=== PATIENT | female | born 1990 | race American Indian/Alaskan Native ===

== ENCOUNTER 2017-04-09 20:00 | Emergency (ER) | payer BC ==
[2017-04-09 20:06] VITALS: RESP 18; TEMP 98.7
[2017-04-09] MEDS ORDERED: Sodium Chloride 0.9% 1,000 ML IV STA (20:21)
[2017-04-09 20:23] VITALS: O2SAT 99
--- NOTE | 2017-04-09 20:23 | ED PDOC ---
"Arrival/HPI - General Chief Complaint: Chest Pain Time Seen by Provider: 04/09/17 20:07 Historian: Patient - History of Present Illness Narrative History of Present Illness (Text): 04/09/17 20:21 26 y/o female no pmh, nkda, c/o bilateral lower extremity pain and chest pain x 2 days. Pt. stated that she has bilateral lower extremity pain, noticed to have rt. calf pain with the chest pain for the past 2 days, no night sweat, no dizziness, no change in vision, no pain medication taken at home, was seen at the [facility] and send to the ER for further evaluation, no palpitation, no rash, no other medical or psychological complaints. Past Medical History - Provider Review Nursing Documentation Reviewed: Yes - Hematological/Oncological Hx Blood Disorders: Yes Hx Anemia: Yes - Psychiatric Hx Substance Use: No - Anesthesia Hx Anesthesia: No Family/Social History - Physician Review Nursing Documentation Reviewed: Yes Family/Social History: Unknown Family HX Smoking Status: Light Smoker < 10 Cigarettes Daily Hx Alcohol Use: No Hx Substance Use: No Allergies/Home Meds Allergies/Adverse Reactions: Allergies No Known Allergies Allergy (Verified 04/09/17 20:21) Review of Systems - Review of Systems Constitutional: absent: Fatigue, Fevers Eyes: absent: Vision Changes ENT: absent: Hearing Changes Respiratory: absent: SOB, Cough Cardiovascular: Chest Pain Gastrointestinal: absent: Abdominal Pain, Nausea, Vomiting Musculoskeletal: Myalgias. absent: Arthralgias, Back Pain, Neck Pain, Joint Swelling Skin: absent: Rash, Pruritis Neurological: absent: Headache, Dizziness Psychiatric: absent: Anxiety, Depression, Suicidal Ideation Physical Exam Vital Signs Reviewed: Yes Vital Signs Temp Pulse Resp BP Pulse Ox 04/10/17 01:07 75 18 107/50 L 99 04/09/17 20:23 18 135/89 99 04/09/17 20:04 98.7 F 104 H 18 139/94 H 100 Temperature: Afebrile Blood Pressure: Hypertensive Pulse: Tachycardic Respiratory Rate: Normal Appearance: Positive for: Well-Appearing, Non-Toxic, Comfortable Pain Distress: None Mental Status: Positive for: Alert and Oriented X 3 - Systems Exam Head: Present: Atraumatic, Normocephalic Pupils: Present: PERRL Extroacular Muscles: Present: EOMI Conjunctiva: Present: Normal Mouth: Present: Moist Mucous Membranes Neck: Present: Normal Range of Motion Respiratory/Chest: Present: Clear to Auscultation, Good Air Exchange. No: Respiratory Distress, Accessory Muscle Use Cardiovascular: Present: Regular Rate and Rhythm, Normal S1, S2. No: Murmurs Abdomen: Present: Normal Bowel Sounds. No: Tenderness, Distention, Peritoneal Signs Back: Present: Normal Inspection Upper Extremity: Present: Normal Inspection. No: Cyanosis, Edema Lower Extremity: Present: Normal Inspection, Other (Bilateral lower extremity: mild bruising approx. 4cm diameter noted on the rt. tibial region, no cellulitis , no streaking or ulcers, FROM without limitations, sensation intact, motor 5/5 , +DPPT pulses, capillary refill< 2 seconds, neurovascular intact. ). No: Edema Neurological: Present: GCS=15, Speech Normal, Motor Func Grossly Intact, Gait Normal, Memory Normal Skin: Present: Warm, Dry, Normal Color. No: Rashes Psychiatric: Present: Alert, Oriented x 3, Normal Insight, Normal Concentration Medical Decision Making ED Course and Treatment: 04/09/17 20:27 -labs/ua/rapid flu -bilateral lower extremities venuous doppler -IVF -Observe and reassess 04/10/17 01:52 -EKG: NSR @ 84 BPM, no ST elevation or depression, no T wave inversion. -Bilateral lower extremities venuous doppler: as per preliminary report, no acute DVT -CTA: No evidence of pulmonary embolism or other significant acute abnormality in the chest. -Labs are non-significant except d-dimer 294 -Pt. is asymptomatic now, no cardiopulmonary complaints. -Macrobid ordered. -Discharge home with macrobid, tylenol, bed rest, follow up with your own pmd and electrical equipment technician within 2 days, return to the ER for any new or worsening signs or symptoms. - Lab Interpretations Lab Results: 04/09/17 21:29 04/09/17 21:29 Lab Results 04/09/17 21:29: WBC 8.8, RBC 4.44, Hgb 13.9, Hct 39.1, MCV 88.1, MCH 31.3, MCHC 35.5, RDW 12.2, Plt Count 242, MPV 11.8 H, Gran % 66.6, Lymph % (Auto) 24.7, [place] % (Auto) 6.3 H, Eos % (Auto) 1.9, Baso % (Auto) 0.5, Gran # 5.88, Lymph # 2.2, [place] # 0.6, Eos # 0.2, Baso # 0.04 04/09/17 21:29: Sodium 140, Potassium 4.0, Chloride 103, Carbon Dioxide 27, Anion Gap 14, BUN 16, Creatinine 0.8, Est GFR ( Amer) > 60, Est GFR (Non- Af Amer) > 60, Random Glucose 80, Calcium 9.3, Magnesium 1.8, Total Bilirubin 0.6, AST 31, ALT 44, Alkaline Phosphatase 77, Lactate Dehydrogenase 557, Total Creatine Kinase 161, Troponin I < 0.01, NT-Pro-B Natriuret Pep 32.8, Total Protein 7.9, Albumin 4.4, Globulin 3.5, Albumin/Globulin Ratio 1.2, Lipase 132 04/09/17 21:29: Urine Color Yellow, Urine Appearance Clear, Urine pH 6.0, Ur Specific [place] 1.015, Urine Protein Negative, Urine Glucose (UA) Negative, Urine Ketones Negative, Urine Blood Trace-intact H, Urine Nitrate Positive H, Urine Bilirubin Negative, Urine Urobilinogen 0.2, Ur Leukocyte Esterase Negative , Urine RBC 0 - 2, Urine WBC 2 - 5, Ur Epithelial Cells 1 - 3, Urine Bacteria Large 04/09/17 21:29: D-Dimer, Quantitative 294 H 04/09/17 20:21: Influenza Typ A,B (EIA) Negative for flu a/b I have reviewed the lab results: Yes - RAD Interpretation Radiology Orders: 04/09/17 20:23 DUPLEX LOWER EXTRM VEIN BILAT [US] Stat 04/09/17 22:09 ANGIO CHEST PE PROTOCOL [CT] Stat -Bilateral lower extremities venuous doppler: as per preliminary report, no acute DVT ----- -Chest xray: FINDINGS: PULMONARY ARTERIES: Contrast opacification of the pulmonary arteries is adequate , and there are no filling defects seen to suggest pulmonary embolism. AORTA: No evidence of aortic dissection. LUNGS: No evidence of significant focal consolidation/infiltrate in the lungs. No evidence of diffuse pulmonary vascular congestion. PLEURAL SPACE: No pneumothorax or pleural effusions seen. HEART: No evidence of significant pericardial effusion. BONES/JOINTS: No acute bony abnormality identified. SOFT TISSUES: No acute abnormality of the visualized soft tissues seen. LYMPH NODES: No evidence of diffuse lymphadenopathy. ARAMIS ABRAMS | Final Radiology Report CONFIDENTIALITY STATEMENT This report is intended only for use by the referring physician, and only in accordance with law. If you received this in error, call [phone]. Page 2 of 2 IMPRESSION: - No evidence of pulmonary embolism or other significant acute abnormality in the chest. - See above for remaining findings. Thank you for allowing us to participate in the care of your patient. Dictated and Authenticated by: Edyta Mcdonough MD 04/10/2017 1:35 AM Eastern Time ([place] & [place]) Sliver Machine Operator: Radiologist - EKG Interpretation EKG Interpretation (Text): 04/09/17 20:28 -EKG: NSR @ 84 BPM, no ST elevation or depression, no T wave inversion. Interpreted by ED Physician: Yes Type: 12 lead EKG - Medication Orders Current Medication Orders: Discontinued Medications Sodium Chloride (Sodium Chloride 0.9%) 1,000 mls @ 999 mls/hr IV .Q1H1M STA Stop: 04/09/17 21:21 Last Admin: 04/09/17 21:56 Dose: 999 mls/hr eMAR Start Stop Document 04/09/17 21:56 SHAGUFTA (Rec: 04/09/17 21:57 SHAGUFTA [facility] [id number][place] Intravenous Solution Start Date 04/09/17 Start Time 21:56 End Date 04/09/17 End time 22:56 Total Infusion Time 60 - PA / DIRECTOR SPECIAL EDUCATION / Resident Statement MD/DO has reviewed & agrees with the documentation as recorded. Disposition/Present on Arrival - Present on Arrival Any Indicators Present on Arrival: No History of DVT/PE: No History of Uncontrolled Diabetes: No Urinary Catheter: No History of Decub. Ulcer: No History Surgical Site Infection Following: None - Disposition Have Diagnosis and Disposition been Completed?: Yes Diagnosis: UTI (urinary tract infection), Atypical chest pain Disposition: HOME/ ROUTINE Disposition Time: 01:53 Patient Plan: Discharge Condition: IMPROVED Discharge Instructions (ExitCare): Chest Pain (ED) Additional Instructions: -Discharge home with macrobid, tylenol, bed rest, follow up with your own pmd and electrical equipment technician within 2 days, return to the ER for any new or worsening signs or symptoms. Prescriptions: Acetaminophen [Tylenol 325mg tab] 2 tab PO QID PRN #30 tab PRN Reason: Other Nitrofurantoin Macrocrystals [Macrobid] 100 mg PO BID #14 cap Referrals: Pranav Zeng MD [Staff Provider] - Follow up with primary [facility] [place]] - Follow up with primary Forms: WORK NOTE"
[2017-04-09 21:50] LABS: BASO # 0.04 K/mm3 (0.0-2.0); BASO % 0.5 % (0.0-3.0); EOS # 0.2 (0.0-0.7); EOS % 1.9 % (1.5-5.0); GRAN # 5.88 (1.4-6.5); GRAN % 66.6 % (50.0-68.0); HEMOGLOBIN 13.9 g/dL (12.0-16.0); LYMPH # 2.2 (1.2-3.4); LYMPH % 24.7 % (22.0-35.0); MEAN CELL VOLUME 88.1 fl (80.0-105.0); MEAN CORPUSCULAR HEMOGLOBIN 31.3 pg (25.0-35.0); MEAN CORPUSCULAR HGB CONC 35.5 g/dl (31.0-37.0); MEAN PLATELET VOLUME 11.8 fl (7.0-11.0); MONO # 0.6 (0.1-0.6); MONO % 6.3 % (1.0-6.0); RBC 4.44 10^6/uL (3.5-6.1); RED CELL DISTRIBUTION WIDTH 12.2 % (11.5-14.5); WHITE BLOOD COUNT 8.8 10^3/ul (4.5-11.0)
[2017-04-09 21:51] LABS: URINE BILIRUBIN NEGATIVE (NEGATIVE); URINE BLOOD TRACE-INTACT (NEGATIVE); URINE GLUCOSE (UA) NEGATIVE (NEGATIVE); URINE LEUKOCYTE ESTERASE NEGATIVE Leu/uL (NEGATIVE); URINE NITRATE POSITIVE (NEGATIVE); URINE PROTEIN NEGATIVE mg/dL (<30 mg/dL); URINE UROBILINOGEN 0.2 E.U./dL (<1 E.U./dL)
[2017-04-09 21:58] LABS: ALB/GLOB RATIO 1.2 (1.1-1.8); ALBUMIN 4.4 g/dL (3.0-4.8); ALT/SGPT 44 U/L (7-56); AST/SGOT 31 U/L (14-36); BLOOD UREA NITROGEN 16 mg/dL (7-21); CALCIUM 9.3 mg/dL (8.4-10.5); GFR AFRICAN-AMERICAN > 60; GFR NON-AFRICAN AMERICAN > 60; LIPASE 132 U/L (23-300); MAGNESIUM 1.8 mg/dL (1.7-2.2)
[2017-04-09 22:06] LABS: URINE APPEARANCE CLEAR (CLEAR); URINE COLOR YELLOW (YELLOW)
[2017-04-09] MEDS ORDERED: Iohexol 350 MG/100 ML VIAL ONE (22:13)
[2017-04-09 22:17] LABS: URINE BACTERIA LARGE (NEG); URINE RBC 0 - 2 /hpf (0-2)
[2017-04-09 22:22] LABS: B-TYPE NATRIURETIC PEPTIDE 32.8 pg/mL (0-450); TROPONIN I < 0.01 ng/mL
[2017-04-10 01:08] VITALS: BP 107/50; PULSE 75
--- NOTE | 2017-04-10 01:35 | CT ---
EXAM: CT Angiography Chest With Intravenous Contrast EXAM DATE/TIME: 04/09/2017 10:09 PM CLINICAL HISTORY: 26 years old, female; Pain; Chest pain; Additional info: Chest pain x 2 days, elevated d-dimer TECHNIQUE: Axial computed tomographic angiography images of the chest with intravenous contrast using pulmonary embolism protocol. All CT scans at this facility use one or more dose reduction techniques, viz.: automated exposure control; ma/kV adjustment per patient size (including targeted exams where dose is matched to indication; i.e. head); or iterative reconstruction technique. MIP reconstructed images were created and reviewed. Coronal and sagittal reformatted images were created and reviewed. CONTRAST: 100 mL of omnipaque administered intravenously. COMPARISON: No relevant prior studies available. FINDINGS: PULMONARY ARTERIES: Contrast opacification of the pulmonary arteries is adequate, and there are no filling defects seen to suggest pulmonary embolism. AORTA: No evidence of aortic dissection. LUNGS: No evidence of significant focal consolidation/infiltrate in the lungs. No evidence of diffuse pulmonary vascular congestion. PLEURAL SPACE: No pneumothorax or pleural effusions seen. HEART: No evidence of significant pericardial effusion. BONES/JOINTS: No acute bony abnormality identified. SOFT TISSUES: No acute abnormality of the visualized soft tissues seen. LYMPH NODES: No evidence of diffuse lymphadenopathy. IMPRESSION: - No evidence of pulmonary embolism or other significant acute abnormality in the chest. - See above for remaining findings.
--- NOTE | 2017-04-10 03:07 | US ---
HISTORY: Leg pain and swelling. Evaluate for DVT PHYSICIAN(S): Pranav Ricci MD. TECHNIQUE: Duplex sonography and color-flow Doppler with graded compression were used to evaluate the deep venous systems of both lower extremities. FINDINGS: The visualized deep venous systems of both lower extremities are sonographically normal and compressible. Normal wave forms and augmentation are seen. There is no sonographic evidence for deep venous thrombosis in the visualized segments of both lower extremities. IMPRESSION: No sonographic evidence for deep venous thrombosis in the visualized segments of both lower extremities.
--- NOTE | 2017-04-10 14:52 | CARD ---
APPROVED REPORT EKG Measurement Heart [id number] <Conclusion> Normal sinus rhythm Normal ECG
== END 2017-04-10 02:37 | disposition home or self-care (01) ==
LOC: ED 20:00 → MERGE 20:00 → ED 04-10 02:37
DX: R07.89 Other chest pain (principal); N39.0 Urinary tract infection, site not specified
CPT/HCPCS: 71275; 80053; 81001; 82550; 83615; 83690; 83735; 83880; 84484; 85025; 85378; 87804; 93005; 93970; 96360; 99281; J7040; Q9967

== ENCOUNTER 2018-05-25 17:15 | Emergency (ER) | payer BC ==
[2018-05-25 17:45] VITALS: BMI 30.1
[2018-05-25 17:49] VITALS: RESP 18; TEMP 98.4
[2018-05-25] MEDS ORDERED: Sodium Chloride 0.9% 1,000 ML IV STA (19:08)
[2018-05-25 19:42] LABS: BASO # 0.03 K/mm3 (0.0-2.0); BASO % 0.3 % (0.0-3.0); EOS # 0.2 (0.0-0.7); EOS % 1.8 % (1.5-5.0); HEMOGLOBIN 13.9 g/dL (12.0-16.0); LYMPH % 29.9 % (22.0-35.0); MEAN CELL VOLUME 87.2 fl (80.0-105.0); MEAN CORPUSCULAR HEMOGLOBIN 30.2 pg (25.0-35.0); MEAN CORPUSCULAR HGB CONC 34.7 g/dl (31.0-37.0); MEAN PLATELET VOLUME 11.5 fl (7.0-11.0); MONO # 0.7 (0.1-0.6); MONO % 6.6 % (1.0-6.0); RBC 4.6 10^6/uL (3.5-6.1); RED CELL DISTRIBUTION WIDTH 12.3 % (11.5-14.5); WHITE BLOOD COUNT 10.1 10^3/uL (4.5-11.0)
[2018-05-25 19:53] LABS: ALB/GLOB RATIO 1.2 (1.1-1.8); ALBUMIN 4.5 g/dL (3.0-4.8); ALT/SGPT 25 U/L (7-56); AST/SGOT 23 U/L (14-36); BLOOD UREA NITROGEN 14 mg/dL (7-21); CALCIUM 9.2 mg/dL (8.4-10.5); GFR NON-AFRICAN AMERICAN > 60
[2018-05-25 19:59] LABS: INR 1.25; PARTIAL THROMBOPLASTIN TIME 32.9 Seconds (26.9-38.3); PROTHROMBIN TIME 13.9 SECONDS (9.4-12.5)
[2018-05-25 20:04] LABS: TROPONIN I < 0.01 ng/mL
[2018-05-25] MEDS ORDERED: Sodium Chloride 0.45% 1,000 ML IV SCH (20:45)
[2018-05-25 22:05] LABS: PH,URINE 6.5 (4.7-8.0); URINE APPEARANCE SLIGHT-CLOUDY (CLEAR); URINE BILIRUBIN NEGATIVE (NEGATIVE); URINE BLOOD LARGE (NEGATIVE); URINE COLOR YELLOW (YELLOW); URINE GLUCOSE (UA) NEGATIVE (NEGATIVE); URINE LEUKOCYTE ESTERASE SMALL Leu/uL (NEGATIVE); URINE PROTEIN TRACE mg/dL (<30 mg/dL); URINE UROBILINOGEN 0.2 E.U./dL (<1 E.U./dL)
[2018-05-25 22:09] LABS: URINE BACTERIA MANY /hpf
--- NOTE | 2018-05-25 23:11 | ED PDOC ---
Arrival/HPI - General Chief Complaint: Dizziness/Lightheaded Time Seen by Provider: 05/25/18 19:02 Historian: Patient - History of Present Illness Narrative History of Present Illness (Text): 05/25/18 23:30 27-year-old female with a history of hypertension presents today with dizziness and syncope. Patient's partner states that the patient was sitting in the chair and suddenly passed out. He states she took a few minutes to come to. Patient states prior to passing out she was feeling dizzy. She denies headaches. She denied chest pain or shortness of breath. She denied abdominal pain. No nausea or vomiting. At present time patient states she still having slight dizziness but she is feeling a little bit better. Patient states she was recently seen by her primary care physician and given a referral for an outpatient echocardiogram to further evaluate her heart. Patient denies back pain. Patient denies dysuria urinary frequency or urgency. No other complaints Past Medical History - Provider Review Nursing Documentation Reviewed: Yes - Travel History Have you recently traveled outside [place] w/in the past 3 mons?: No - Infectious Disease Hx of Infectious Diseases: None - Reproductive Currently : No - Cardiac Hx Hypertension: Yes - Neurological Hx Dizziness: Yes - Hematological/Oncological Hx Blood Disorders: Yes Hx Anemia: Yes - Psychiatric Hx Substance Use: No - Anesthesia Hx Anesthesia: No Family/Social History - Physician Review Nursing Documentation Reviewed: Yes Family/Social History: Unknown Family HX Smoking Status: Light Smoker < 10 Cigarettes Daily Hx Alcohol Use: Yes Frequency of alcohol use: Socially Hx Substance Use: No Allergies/Home Meds Allergies/Adverse Reactions: Allergies No Known Allergies Allergy (Unverified 07/06/16 17:22) Home Medications: Home Meds Medication Instructions Recorded Confirmed Enalapril Maleate [Vasotec] 1 tab PO DAILY 05/25/18 05/25/18 Review of Systems - Review of Systems Constitutional: Fatigue. absent: Fevers ENT: absent: Sore Throat, Sinus Congestion Respiratory: absent: SOB, Cough Cardiovascular: Syncope. absent: Chest Pain, Palpitations Gastrointestinal: absent: Abdominal Pain, Constipation, Diarrhea, Nausea, Vomiting Genitourinary Female: absent: Dysuria, Frequency, Hematuria Musculoskeletal: absent: Arthralgias, Back Pain, Neck Pain Skin: absent: Rash, Pruritis Neurological: Dizziness. absent: Headache Psychiatric: absent: Anxiety, Depression Physical Exam Vital Signs Reviewed: Yes Vital Signs Temp Pulse Resp BP Pulse Ox 05/25/18 21:42 68 18 121/69 98 05/25/18 21:32 98.4 F 83 18 118/71 100 05/25/18 19:16 75 18 116/74 98 05/25/18 17:48 98.4 F 81 18 118/78 98 Temperature: Afebrile Blood Pressure: Normal Pulse: Regular Respiratory Rate: Normal Appearance: Positive for: Well-Appearing, Non-Toxic, Comfortable Pain Distress: None Mental Status: Positive for: Alert and Oriented X 3 - Systems Exam Head: Present: Atraumatic Pupils: Present: PERRL Extroacular Muscles: Present: EOMI Mouth: Present: Moist Mucous Membranes Neck: Present: Normal Range of Motion Respiratory/Chest: Present: Clear to Auscultation, Good Air Exchange. No: Respiratory Distress, Accessory Muscle Use Cardiovascular: Present: Regular Rate and Rhythm, Normal S1, S2. No: Murmurs Abdomen: No: Tenderness, Distention, Peritoneal Signs, Rebound, Guarding Back: Present: Normal Inspection Upper Extremity: Present: Normal ROM Lower Extremity: Present: Normal ROM. No: Edema, CALF TENDERNESS Neurological: Present: GCS=15, Speech Normal Skin: Present: Warm, Dry, Normal Color. No: Rashes Psychiatric: Present: Alert, Oriented x 3 Medical Decision Making ED Course and Treatment: 05/26/18 00:08 27yr old female with hx of HTN with syncopal episode at home. cbc; wnl cmp wnl trop: wnl d-dimer; elevated UA; + leukocytes. ct Angio: FINDINGS: PULMONARY ARTERIES No evidence of central or segmental pulmonary embolism is seen. AORTA There is no evidence for aneurysm or dissection of the thoracic aorta. LUNGS The lungs appear clear. PLEURAL SPACES No pleural effusion seen. No pneumothorax evident. HEART Heart size is within normal limits. No significant pericardial effusion. LYMPH NODES No lymphadenopathy is evident. BONES No focal osseous abnormality or acute fracture. UPPER ABDOMEN Images of the upper abdomen are unremarkable. IMPRESSION: Unremarkable pulmonary embolism protocol CTA of the chest. Electronically signed on May 25, 2018 10:59:59 PM EST by: Sav Melton M.D., ZAKIA Certified By ABR & CBC[employer] Fellowship Trained MRI and CT Specialist pt started on keflex for UTI case discussed with dr. pérez; accepts observational status admission to tele as patient with hx of HTN, with syncopal episode. pt seen and evaluated at bedside by dr. pérez. impression; syncope admit Reassessment Condition: Re-examined, Improved - Lab Interpretations Lab Results: PT 13.9 SECONDS (9.4-12.5) H 05/25/18 19:37 INR 1.25 05/25/18 19:37 APTT 32.9 Seconds (26.9-38.3) 05/25/18 19:37 D-Dimer, Quantitative 263 ng/mlDDU (0-243) H 05/25/18 19:37 Troponin I < 0.01 ng/mL 05/25/18 19:37 Total Bilirubin 0.4 mg/dL (0.2-1.3) 05/25/18 19:37 AST 23 U/L (14-36) 05/25/18 19:37 ALT 25 U/L (7-56) 05/25/18 19:37 Alkaline Phosphatase 76 U/L (38-126) 05/25/18 19:37 Total Protein 8.1 g/dL (5.8-8.3) 05/25/18 19:37 Albumin 4.5 g/dL (3.0-4.8) 05/25/18 19:37 Globulin 3.6 gm/dL 05/25/18 19:37 Albumin/Globulin Ratio 1.2 (1.1-1.8) 05/25/18 19:37 Urine Color Yellow (YELLOW) 05/25/18 21:50 Urine Appearance Slight-cloudy (CLEAR) 05/25/18 21:50 Urine pH 6.5 (4.7-8.0) 05/25/18 21:50 Ur Specific [place] 1.015 (1.005-1.035) 05/25/18 21:50 Urine Protein Trace mg/dL (<30 mg/dL) H 05/25/18 21:50 Urine Glucose (UA) Negative mg/dL (NEGATIVE) 05/25/18 21:50 Urine Ketones Negative mg/dL (NEGATIVE) 05/25/18 21:50 Urine Blood Large (NEGATIVE) H 05/25/18 21:50 Urine Nitrate Positive (NEGATIVE) H 05/25/18 21:50 Urine Bilirubin Negative (NEGATIVE) 05/25/18 21:50 Urine Urobilinogen 0.2 E.U./dL (<1 E.U./dL) 05/25/18 21:50 Ur Leukocyte Esterase Small Mami/uL (NEGATIVE) H 05/25/18 21:50 Urine RBC 2 - 5 /hpf (0-2) H 05/25/18 21:50 Urine WBC 2 - 5 /hpf (0-6) 05/25/18 21:50 Ur Epithelial Cells None /hpf (0-5) 05/25/18 21:50 Urine Bacteria Many /hpf (NONE) 05/25/18 21:50 - RAD Interpretation Radiology Orders: 05/25/18 19:07 CHEST PORTABLE [RAD] Stat 05/25/18 20:15 ANGIO CHEST PE PROTOCOL [CT] Stat - Medication Orders Current Medication Orders: Sodium Chloride (Sodium Chloride 0.45%) 1,000 mls @ 40 mls/hr IV .Q24H CELI Last Admin: 05/25/18 20:46 Dose: 40 mls/hr eMAR Start Stop Document 05/25/18 20:46 OCS (Rec: 05/25/18 23:07 OCS [id number]) Intravenous Solution Start Date 05/25/18 Start Time 20:46 Discontinued Medications Sodium Chloride (Sodium Chloride 0.9%) 1,000 mls @ 999 mls/hr IV .Q1H1M STA Stop: 05/25/18 20:08 Last Admin: 05/25/18 19:32 Dose: 999 mls/hr eMAR Start Stop Document 05/25/18 19:32 RG (Rec: 05/25/18 19:33 RG [id number]) Intravenous Solution Start Date 05/25/18 Start Time 19:32 End Date 05/25/18 Disposition/Present on Arrival - Present on Arrival Any Indicators Present on Arrival: No History of DVT/PE: No History of Uncontrolled Diabetes: No Urinary Catheter: No History of Decub. Ulcer: No History Surgical Site Infection Following: None - Disposition Have Diagnosis and Disposition been Completed?: Yes Diagnosis: UTI (urinary tract infection), Syncope Disposition: HOSPITALIZED Disposition Time: 21:00 Patient Plan: Observation Patient Problems: Current Active Problems Problem Status Onset Syncope Acute UTI (urinary tract infection) Acute Condition: FAIR
[2018-05-26 00:13] VITALS: BP 128/76; PULSE 80; O2SAT 100
--- NOTE | 2018-05-26 02:26 | HP ---
DATE OF EXAM: 05/25/2018 HISTORY OF PRESENT ILLNESS: She is a 27-year-old female who presents to the emergency room with dizziness and syncope. She completely passed out. She has done this before. She has had dizziness in the past but not passing out. She has been seeing her private doctor who has her on blood pressure pills for blood pressure and trying to work this out, but she passed out. She came to the emergency room. PAST MEDICAL HISTORY: Hypertension. He has her on medications. She did have anemia in the past. PAST SURGICAL HISTORY: No surgeries. FAMILY HISTORY: Unknown. SOCIAL HISTORY: She is a smoker. No alcohol. No drugs. REVIEW OF SYSTEMS: No headaches. No vision changes. She passed out though. No sore throat or shortness of breath. No cough, no chest pain or palpitations. No abdominal pain, nausea, vomiting, or constipation. No back pain, neck pain or itching. No rashes. She was dizzy. No headache. No auras. No migraines, just dizzy and passed out. Not anxious. Not depressed, but suicidal. PHYSICAL EXAMINATION: VITAL SIGNS: Temperature 98.4, pulse 81, blood pressure 118/74, respiratory rate 18, O2 sat 98% on room air. GENERAL: She is taking blood pressure pills at home. She is not toxic. She is comfortable. She is alert and oriented x3 at this time. No apparent distress. She does not feel dizzy and no headache. HEENT: Her head is atraumatic and normocephalic. Pupils equal and reactive to light. Extraocular muscles are intact. Throat is moist. NECK: Supple. Thyroid midline. No palpable appreciable lymphadenopathy, HEART: Regular rate. Normal S1 and S2. LUNGS: Decreased breath sounds but clear to auscultation. ABDOMEN: Soft and nontender. Positive bowel sounds. EXTREMITIES: No edema. NEUROLOGIC: GCS is 15. Cranial nerves grossly intact. SKIN: Warm and dry. No apparent rashes. LABORATORY DATA: At this time, there are no lab tests done. White count 10.1, hemoglobin 13.9, hematocrit 40.1 and platelets 249. INR 1.25. D-dimer is 263. We are doing CT angio in the emergency room. Sodium 139, potassium 3.7, BUN 40, creatinine 0.9, GFR is greater than 60, sugar is 90, calcium 9.2, total bili is 0.4, AST is 23, ALT is 25, alk phos 76. and lactate dehydrogenase is 447. Total creatine kinase is 82. Troponin I is less than 0.01. Total protein 3.1, albumin is 4.5. IMPRESSION AND PLAN: Dizzy with syncope and history of high blood pressure. So, the plan is Cardiology consult, Neurology consult, IV fluids, CT angio of the chest because of elevated D-dimer, tele observation. We will hold the blood pressure medication as the blood pressure was mildly low and we will see her on telemetry observation. Goldy To DO
--- NOTE | 2018-05-26 08:22 | CT ---
Date of service: 05/25/2018 PROCEDURE: CT Chest with contrast (Pulmonary Angiogram) HISTORY: syncope/ elevated dimer COMPARISON: None available. TECHNIQUE: Axial computed tomography images were obtained of the chest in the pulmonary arterial phase of enhancement. Coronal and sagittal reformatted images were created and reviewed. Intravenous contrast dose: 148 cc of Omni 350 Radiation dose: Total exam DLP = 437.66 mGy-cm. This CT exam was performed using one or more of the following dose reduction techniques: Automated exposure control, adjustment of the mA and/or kV according to patient size, and/or use of iterative reconstruction technique. FINDINGS: PULMONARY ARTERIES: Unremarkable. No pulmonary embolism. AORTA: No acute findings. No thoracic aortic aneurysm. No aortic atherosclerotic calcification or mural plaque present. LUNGS: Unremarkable. No nodule, mass or pulmonary consolidation. PLEURAL SPACES: Unremarkable. No effusion or pneumothorax. HEART: Unremarkable. No cardiomegaly. No significant pericardial effusion. LYMPH NODES: No lymphadenopathy. BONES, CHEST WALL: Unremarkable. No fracture or destructive lesion OTHER FINDINGS: Unremarkable. IMPRESSION: Unremarkable CT pulmonary angiogram. No pulmonary embolus.
--- NOTE | 2018-05-26 09:31 | RAD ---
Date of service: 05/25/2018 HISTORY: dizziness COMPARISON: No prior. FINDINGS: LUNGS: No active pulmonary disease. PLEURA: No significant pleural effusion identified, no pneumothorax apparent. CARDIOVASCULAR: No aortic atherosclerotic calcification present. Normal cardiac size. No pulmonary vascular congestion. OSSEOUS STRUCTURES: No significant abnormalities. VISUALIZED UPPER ABDOMEN: Normal. OTHER FINDINGS: None. IMPRESSION: No active disease.
--- NOTE | 2018-05-26 15:24 | CARD ---
APPROVED REPORT Date of service: 05/25/2018 EKG Measurement Heart [id number] <Conclusion> Normal sinus rhythm Normal ECG
== END 2018-05-26 00:57 | disposition left against medical advice (07) ==
LOC: ED 17:15 → ERH 23:06 → UNDOADMOB 23:06 → ERH 23:24
DX: N39.0 Urinary tract infection, site not specified (principal); R55 Syncope and collapse; F17.210 Nicotine dependence, cigarettes, uncomplicated; I10 Essential (primary) hypertension
CPT/HCPCS: 71045; 71275; 80053; 81001; 81025; 82550; 83615; 84484; 85025; 85378; 85610; 85730; 87086; 87181; 93005; 99285; J7030; Q9967